=== PATIENT | male | born 1980 | race African-American/Black ===

== ENCOUNTER 2016-07-08 13:28 | Emergency (ER) | payer OTHER ==
[~2016-07-08] VITALS: Ht 185.4 cm; Wt 123.8 kg
[2016-07-08] MEDS ORDERED: ALLOPURINOL100 MG PO ×2 (13:50→14:12)
[2016-07-08] MEDS ORDERED: BACTRIM,SEPT1 TABLET PO (15:15)
[2016-07-08 15:37] VITALS: BP 147/80
== END 2016-07-08 15:37 | disposition home or self-care (01) ==
LOC: EME 13:28 → EXP 13:28
DX: L02.512 Cutaneous abscess of left hand (principal); L03.012 Cellulitis of left finger; M10.9 Gout, unspecified; Z76.0 Encounter for issue of repeat prescription; Z23 Encounter for immunization
CPT/HCPCS: 73140; 87070; 87075; 87076; 87077; 87186; 87205; 99281; 99284

== ENCOUNTER 2016-07-26 17:10 | Emergency (ER) | payer OTHER ==
[~2016-07-26] VITALS: Ht 185.4 cm; Wt 119.9 kg
[~2016-07-26 17:10] MED LIST: ALLOPURINOL100 MG PO; BACTRIM,SEPT1 TABLET PO
[2016-07-26 17:11] VITALS: BP 171/98
[2016-07-26] MEDS ORDERED: ALLOPURINOL100 MG PO (17:47)
[2016-07-26] MEDS ORDERED: NAPROSYN500 MG PO (17:47)
== END 2016-07-26 18:38 | disposition home or self-care (01) ==
LOC: EME 17:10
DX: M10.9 Gout, unspecified (principal); F10.10 Alcohol abuse, uncomplicated; F17.200 Nicotine dependence, unspecified, uncomplicated
CPT/HCPCS: 99281; 99283

== ENCOUNTER 2016-10-31 17:09 | Emergency (ER) | payer OTHER ==
[~2016-10-31] VITALS: Ht 188 cm; Wt 120.3 kg
[~2016-10-31 17:09] MED LIST changes: +NAPROSYN500 MG PO
[2016-10-31 17:27] VITALS: BP 139/94
[2016-10-31] MEDS ORDERED: NAPROSYN500 MG PO (20:26)
[2016-10-31] MEDS ORDERED: ALLOPURINOL100 MG PO (20:26)
== END 2016-10-31 20:42 | disposition home or self-care (01) ==
LOC: EME 17:09
DX: M10.9 Gout, unspecified (principal); F17.200 Nicotine dependence, unspecified, uncomplicated
CPT/HCPCS: 99281; 99283

== ENCOUNTER 2017-01-06 08:55 | Emergency (ER) | payer OTHER ==
[~2017-01-06] VITALS: Ht 185.4 cm; Wt 113.5 kg
[2017-01-06] MEDS ORDERED: LIDODERM 5% P1 PATCH TD (09:48)
[2017-01-06] MEDS ORDERED: FLEXERIL10 MG PO (09:48)
[2017-01-06] MEDS ORDERED: NAPROSYN500 MG PO (09:48)
[2017-01-06 10:02] VITALS: BP 129/91
== END 2017-01-06 10:03 | disposition home or self-care (01) ==
LOC: EME 08:55
DX: M62.830 Muscle spasm of back (principal); F17.200 Nicotine dependence, unspecified, uncomplicated
CPT/HCPCS: 99281; 99284; J1885